=== PATIENT | male | born 1975 | race Caucasian/White ===

== ENCOUNTER 2020-07-13 16:15 | Outpatient (REF) | payer MEDICARE, MEDICAID, OTHER, SELFPAY ==
--- NOTE | 2020-07-13 16:25 | XR_ITS ---
EXAMINATION: XR KNEE, BILATERAL CLINICAL INFORMATION: Bilateral knee pain. COMPARISON: None TECHNIQUE: Four views each knee. FINDINGS: LEFT KNEE: There is loss of medial and patellofemoral compartment joint space with no bony erosive changes, loose bodies or joint effusion. RIGHT KNEE: There is mild loss of medial and patellofemoral compartment joint space without periarticular spurring, bony erosive changes or loose bodies. No joint effusion seen. XR/XR knee LT 3V IMPRESSION: Mild loss of medial and patellofemoral compartment joint space likely early osteoarthritis. No visible acute fracture, dislocation or joint effusion. No loose body seen in either knee.
--- NOTE | 2020-07-13 16:25 | XR_ITS ---
EXAMINATION: XR KNEE, BILATERAL CLINICAL INFORMATION: Bilateral knee pain. COMPARISON: None TECHNIQUE: Four views each knee. FINDINGS: LEFT KNEE: There is loss of medial and patellofemoral compartment joint space with no bony erosive changes, loose bodies or joint effusion. RIGHT KNEE: There is mild loss of medial and patellofemoral compartment joint space without periarticular spurring, bony erosive changes or loose bodies. No joint effusion seen. XR/XR knee RT 3V IMPRESSION: Mild loss of medial and patellofemoral compartment joint space likely early osteoarthritis. No visible acute fracture, dislocation or joint effusion. No loose body seen in either knee.
== END 2020-07-13 16:16 | disposition home or self-care (01) ==
LOC: HO.XRAY 16:15
PROVIDERS: PCP Internal Medicine Geriatric Medicine; Visit Provider Nurse Practitioner Primary Care
DX: M25.561 Pain in right knee (principal); M25.562 Pain in left knee
CPT/HCPCS: 73562

== ENCOUNTER 2020-12-16 12:31 | Outpatient (REF) | payer MEDICARE, MEDICAID, SELFPAY ==
--- NOTE | ~2020-12-16 | XR_ITS ---
EXAMINATION: XR FOOT, LEFT CLINICAL INFORMATION: Pain left foot. COMPARISON: None TECHNIQUE: AP, lateral, and oblique views of the left foot. FINDINGS: The bones and soft tissues are normal. No fracture. Alignment is anatomic. Joint spaces are maintained. XR/XR foot LT min 3V IMPRESSION: Unremarkable left foot exam.
== END 2020-12-16 12:32 | disposition home or self-care (01) ==
LOC: HO.XRAY 12:31
PROVIDERS: PCP Internal Medicine Geriatric Medicine; Visit Provider Emergency Medicine
DX: M79.672 Pain in left foot (principal)
CPT/HCPCS: 73630

== ENCOUNTER 2021-10-15 15:11 | Outpatient (REF) | payer MEDICARE, MEDICAID, SELFPAY ==
--- NOTE | ~2021-10-15 | US_ITS ---
EXAMINATION: US VENOUS ULTRASOUND WITH DOPPLER LOWER EXTREMITY, LEFT CLINICAL INFORMATION: Atraumatic severe left knee pain, rule out popliteal cyst. COMPARISON: None TECHNIQUE: Ultrasound of the deep veins is performed from the hip to the calf with compression sonography and color and pulse Doppler assessment. Spectral analysis with color-flow imaging is performed. FINDINGS: There is normal venous compression and respiratory variation and augmented flow. The visualized common femoral vein, superficial femoral vein, profunda femoral vein, popliteal vein, and the trifurcation region shows no evidence of deep venous thrombosis. No left popliteal cyst. A small anechoic collection is seen anterolateral to the left knee demonstrate a horizontal orientation measuring 1.4 x 0.6 x 0.9 cm. Color Doppler showed no abnormal vascular flow. If the patient's symptoms persist, followup ultrasound in 5 days 7 days might be of value to exclude proximal propagation from a non-visualized calf vein. US/US venous duplex LE IMPRESSION: 1. No evidence for deep venous thrombosis in the visualized veins of the left lower extremity. 2. Small anechoic fluid collection along the anterolateral aspect of the left knee could represent mild joint fluid or resolving hematoma. Correlate with physical exam. * If these findings persist or enlarge, short-term repeat targeted soft tissue ultrasound can be performed as clinically indicated to assess for change.
== END 2021-10-15 15:12 | disposition home or self-care (01) ==
LOC: HO.US 15:11
PROVIDERS: PCP Internal Medicine Geriatric Medicine; Visit Provider Nurse Practitioner Family
DX: M25.562 Pain in left knee (principal)
CPT/HCPCS: 93971

== ENCOUNTER 2023-09-12 09:20 | Outpatient (REF) | payer MEDICARE, MEDICAID, SELFPAY ==
[2023-09-12 11:38] LABS: MANUAL DIFF FLAG NO
[2023-09-12 11:42] LABS: Basophils Percent Auto 0.5 % (0-2); Eosinophils Absolute Auto 0.1 X10*3/uL (0.0-0.4); Eosinophils Percent Auto 1.4 % (0-4); Hematocrit 43.4 % (42.0-52.0); Hemoglobin 14.5 g/dl (14.0-18.0); Imm Gran Abs Auto 0.01 X10*3/uL (0.00-0.03); Imm Gran Pct Auto 0.2 % (0.0-0.4); Lymphocytes Absolute Auto 1.9 X10*3/uL (1.2-4.9); Lymphocytes Percent Auto 44.1 % (20-40); Mean Corpuscular HGB Conc 33.4 g/dl (31.0-36.0); Mean Corpuscular Volume 92.7 fL (80.0-98.0); Mean Platelet Volume 10.1 fL (9.4-12.4); Monocytes Absolute Auto 0.5 X10*3/uL (0.1-1.2); Monocytes Percent Auto 12.2 % (2-11); Neutrophils Absolute Auto 1.8 x10*3/uL (2.0-8.3); Neutrophils Percent Auto 41.6 % (45-73); Platelet Count 247 X10*3/uL (160-400); Red Blood Count 4.68 X10*6/uL (4.60-5.80); Red Cell Distribution Width 12.3 % (11.0-16.0); White Blood Count 4.3 X10*3/uL (4.8-10.8)
[2023-09-12 12:29] LABS: Alanine Aminotransferase 25 U/L (0-40); Albumin Level 4.3 g/dL (3.5-5.0); Alkaline Phosphatase 73 U/L (39-117); Anion Gap 10 (12-20); Aspartate Amino Transferase 35 U/L (5-37); Bilirubin Total 0.7 mg/dL (0.0-1.0); Blood Urea Nitrogen 18 mg/dL (9-16); Calcium 9.2 mg/dL (8.4-10.2); Carbon Dioxide 28 mmol/L (22-29); Chloride 103 mmol/L (96-108); Cholesterol 148 mg/dL (<200); Estimated Glomerular Filt Rate > 60; Glucose Random 83 mg/dL (60-115); HDL Cholesterol 45 mg/dL (>40); LDL Cholesterol Calculated 65 mg/dL (<100); Potassium 4.2 mmol/L (3.3-5.1); Sodium 137 mmol/L (135-145); Total Protein 7.7 g/dL (6.5-8.0); Triglycerides 191 mg/dL (<150)
== END 2023-09-12 09:21 | disposition home or self-care (01) ==
LOC: HO.HHCL 09:20
PROVIDERS: Visit Provider Internal Medicine Geriatric Medicine
DX: I10 Essential (primary) hypertension (principal)
CPT/HCPCS: 36415; 80053; 80061; 85025

== ENCOUNTER 2024-02-15 13:37 | Outpatient (REF) | payer MEDICARE, MEDICAID, SELFPAY ==
[2024-02-15 16:19] LABS: MANUAL DIFF FLAG NO
[2024-02-15 16:21] LABS: Basophils Percent Auto 0.3 % (0-2); Eosinophils Percent Auto 0.6 % (0-4); Hemoglobin 14.1 g/dl (14.0-18.0); Imm Gran Abs Auto 0.03 X10*3/uL (0.00-0.03); Imm Gran Pct Auto 0.5 % (0.0-0.4); Lymphocytes Absolute Auto 2.2 X10*3/uL (1.2-4.9); Lymphocytes Percent Auto 32.8 % (20-40); Mean Corpuscular HGB Conc 33.6 g/dl (31.0-36.0); Mean Corpuscular Hemoglobin 31.2 pg (27.0-33.0); Mean Corpuscular Volume 92.9 fL (80.0-98.0); Mean Platelet Volume 10.1 fL (9.4-12.4); Monocytes Absolute Auto 0.7 X10*3/uL (0.1-1.2); Monocytes Percent Auto 10.7 % (2-11); Neutrophils Absolute Auto 3.6 x10*3/uL (2.0-8.3); Neutrophils Percent Auto 55.1 % (45-73); Platelet Count 275 X10*3/uL (160-400); Red Blood Count 4.52 X10*6/uL (4.60-5.80); Red Cell Distribution Width 12.6 % (11.0-16.0); White Blood Count 6.6 X10*3/uL (4.8-10.8)
[2024-02-15 16:40] LABS: Alanine Aminotransferase 39 U/L (0-40); Albumin Level 4.5 g/dL (3.5-5.0); Alkaline Phosphatase 69 U/L (39-117); Anion Gap 13 (12-20); Aspartate Amino Transferase 54 U/L (5-37); Bilirubin Total 0.6 mg/dL (0.0-1.0); Blood Urea Nitrogen 16 mg/dL (9-16); Calcium 10.1 mg/dL (8.4-10.2); Carbon Dioxide 28 mmol/L (22-29); Chloride 102 mmol/L (96-108); Estimated Glomerular Filt Rate > 60; Glucose Random 86 mg/dL (60-115); Potassium 4.2 mmol/L (3.3-5.1); Sodium 139 mmol/L (135-145); Total Protein 8.1 g/dL (6.5-8.0)
== END 2024-02-15 13:38 | disposition home or self-care (01) ==
LOC: HO.HHCL 13:37
PROVIDERS: Visit Provider Internal Medicine Geriatric Medicine
DX: R10.9 Unspecified abdominal pain (principal); G89.29 Other chronic pain; Z98.890 Other specified postprocedural states
CPT/HCPCS: 36415; 80053; 85025

== ENCOUNTER 2024-08-12 10:09 | Outpatient (REF) | payer MEDICARE, MEDICAID, SELFPAY ==
--- OUTSIDE RECORDS SUMMARY | 2024-08-12 10:51 | XMS_ITS | Clinical Summary ---
Author Organization [employer] Address [address] [facility] 7[address] [place] [address] Care Team Providers Care Race Starter Name Role Phone Name, Joni MATAMOROS Primary Care Provider [phone] Thelma Pate PharmD Unavailable [phone] Allergies Active Allergy Reactions Criticality Noted Date Comments Amlodipine 12/22/2021 Other reaction(s): Constipation Medications docusate sodium (Colace) 100 MG capsule Take 1 capsule by mouth every 12 (twelve) hours. 04/15/20 20 Active nadolol (Corgard) 20 MG tablet Take 1 tablet (20 mg) by mouth in the morning. 30 tablet 11 08/23/19 24 025 Active polyethylene glycol, PEG, 3350 (MiraLax) 17 GM/SCOOP powder Take 17 g by mouth Once per day. 527 g 2 02/29/20 24 025 Active valsartan (Diovan) 320 MG tabletIndicatio ns:Essential hypertension TAKE 1 TABLET BY MOUTH EVERY DAY IN THE MORNING 90 tablet 1 04/04/20 24 Active mometasone (Elocon) 0.1 % ointmentIndicat ions:Rash APPLY TOPICALLY EVERY MORNING 15 g 05/03/20 24 Active amitriptyline (Elavil) 50 MG tablet TAKE 1 TABLET BY MOUTH EVERY DAY IN THE MORNING AND 2 AT BEDTIME 270 tablet 1 06/11/20 24 Active SUMAtriptan (Imitrex) 6 MG/0.5ML injectionIndica tions:Migraine without aura, not refractory INJECT 0.5ML UNDER THE SKIN IF NEEDED FOR MIGRAINE,MAY REPEAT AFTER 1 HOUR IF NEEDED.MAX 2 DOSES/DAY 0.5 mL 07/30/19 25 Active traMADol (Ultram) 50 MG tabletIndicatio ns:Chronic pain syndrome Take 1 tablet (50 mg) by mouth every 8 (eight) hours if needed for severe pain for up to 28 days. Do not start before August 02, 2024. 84 tablet 08/02/19 25 025 Active naproxen (Naprosyn) 500 MG tabletIndicatio ns:Chronic pain syndrome TAKE 1 TABLET BY MOUTH EVERY DAY IF NEEDED FOR MILD PAIN 60 tablet 07/31/19 25 Active naproxen (Naprosyn) 500 MG tabletIndicatio ns:Chronic pain syndrome TAKE 1 TABLET BY MOUTH EVERY DAY IF NEEDED FOR MILD PAIN 60 tablet 05/03/20 24 025 Discontinued(Re order (will not trigger notification to Pharmacy)) SUMAtriptan (Imitrex) 6 MG/0.5ML injectionIndica tions:Migraine without aura, not refractory INJECT 0.5 ML (6MG) UNDER THE SKIN IF NEEDED FOR MIGRAINES (IF SYMPTOMS PERSIST REPEAT DOSE AFTER 1 HOUR. NO MORE THEN 12MG IN A DAY) FOR UP TO 10 DOSES. 5 mL 07/01/20 24 025 Discontinued traMADol (Ultram) 50 MG tabletIndicatio ns:Chronic pain syndrome Take 1 tablet (50 mg) by mouth every 8 (eight) hours if needed for severe pain for up to 28 days. 84 tablet 07/05/20 24 025 Discontinued(Re order (will not trigger notification to Pharmacy)) Active Problems Problem Noted Date Diagnosed Date History of appendectomy 05/22/2023 05/22/20 Hyperbilirubinemia 05/22/2023 05/22/2023 Overweight with body mass index (BMI) 25.0-29.9 05/22/2023 05/22/2023 Neuropathic pain 05/22/2023 05/22/2023 Overview (05/22/2023): One of two primary pain problems identified on presentation to [facility] 02/2009 Posttraumatic stress disorder 05/22/2023 Reactive depression 05/22/2023 05/22/2023 Traumatic rupture of spleen 05/22/202305/10 Overview (05/22/2023): Actually splenic laceration. No splenectomy performed. Obstructive sleep apnea syndrome 02/02/2017 Allergic rhinitis 09/30/2016 Essential hypertension 03/03/2016 Chronic diarrhea 01/18/2016 Migraine without aura, not refractory 01/18/2016 Rectal prolapse 01/18/2016 Chronic pain syndrome 06/21/2004 Overview (05/22/2023): One of two primary pain problems identified on presentation to [facility] 02/2009 low back, left buttock, abdomen Crush injury 06/21/2004 05/22/2023 Resolved Problems Problem Noted Date Diagnosed Date Resolved Date Dizziness 05/22/2023 05/22/2023 08/24/2023 Overview (05/22/2023): ? opioid treatment related Headache 05/22/2023 05/22/2023 08/24/2023 Hyposomnia 05/22/2023 05/22/2023 08/24/2023 Pain of left lower extremity 05/22/2023 05/22/2023 08/24/2023 Urinary hesitancy 05/22/2023 05/22/2023 08/24/2023 Overview (05/22/2023): opioid treatment related Migraine 03/28/2018 08/24/2023 Encounters Date Type Department Care Team Description 08/12/2024 9:45 AM EST Office Visit [facility] [address] [place] [address] NameJoni MD Essential hypertension (Primary Dx); Migraine without aura, not refractory; Chronic abdominal pain; Screening for human immunodeficiency virus; Need for hepatitis C screening test 07/30/2024 Refill [facility] [address] [place], [place] [phone] Joni Epstein MD Chronic pain syndrome 07/30/2024 Refill [facility] [address] [place], [place] [phone] Joni Epstien MD Chronic pain syndrome 07/29/2024 Refill [facility] [address] [place] [address] Joni Epstein MD Migraine without aura, not refractory 07/18/2024 Telephone [facility] [address] [place] [address] Joni Epstein MD callback 07/03/2024 Refill [facility] [address] [place] [address] Joni Epstein MD Chronic pain syndrome 07/01/2024 Telephone [facility] [address] [facility] [place] [address] Joni Epstein MD Appointment Request 07/01/2024 Refill [facility] [address] [place] [address] Joni Epstein MD Migraine without aura, not refractory 06/26/2024 Refill [facility] [address] [facility] [place] [address] Joni Epstein MD Chronic pain syndrome 06/24/2024 Telephone [facility] [address] [facility] [place] [address] April Gill MA feb recall 06/10/2024 Refill [facility] [address] [place] [address] Joni Epstein MD 05/30/2024 Refill [facility] [address] [facility] [place] [address] Joni Epstein MD Chronic pain syndrome from Last 3 Months Immunizations Name Administration Dates Next Due Influenza Whole 05/22/2008 Influenza injectable quadriv alent IIV4 with preservative 04/23/2019,03/25/2016 Influenza, IIV3, injectable 04/17/2015, 3 Darlene SARS-CoV-2 Vaccination 12/15/2020 Tdap 12/13/2022,07/01/2016,12/12/2011 Social History Tobacco Use Types Packs/Day Years Used Date Smoking Tobacco: Never Smokeless Tobacco: Never Tobacco Cessation:Counseling Given: Not Answered Alcohol Use Standard Drinks/Week Comments Never 0 (1 standard drink = 0.6 oz pur e alcohol) Depression Answer Date Recorded Patient Health Questionnaire-9 Score 0 08/23/2023 Patient Health Questionnaire-9 Score 0 08/23/2023 Last PHQ-9: Questionnaire Data Not on file 0 08/23/2023 Housing Stability Answer Date Recorded What is your housing situation today? I have tc mckeon 08/23/[address] you li ve. Do you have problems with any of the following? None of the above 08/23/2023 Food Insecurity Answer Date Recorded Within the past 12 months, y ou worried that your food would run out before you got money to buy more: Never True 08/23/2023 Within the past 12 months,th e food you bought just didn't last and you didn't have enough money to get more: Never True Transportation Answer Date Recorded In the past 12 months, has l ack of transportation kept you from medical appts, meetings, work or from getting things needed for daily living? No 08/23/2023 Utilities Answer Date Recorded In the past 12 months, has t he electric, gas, oil or water company threatened to shut off services in your home? No 08/23/2023 Depression Answer Date Recorded Patient Health Questionnaire-2 Score 0 08/23/2023 Sex and Gender Information Value Date Recorded Sex Assigned at Male 05/09/2022 10:29 AM EDT Legal Sex Male 10:29 AM EDT Gender Identity Male 05/09/2022 10:29 AM EDT Sexual Orientation Straight 05/09/2022 10 :29 AM EDT Last Filed Vital Signs Vital Sign Reading Time Taken Comments Blood Pressure 124/74 08/12/2024 9:36 AM EST Pulse 98 08/12/2024 9:36 AM EST Temperature 36.4 ??C (97.5 ??F) 08/12/2024 9:36 AM ES T Respiratory Rate 16 08/12/2024 9:36 AM EST Oxygen Saturation 99% 08/12/2024 9:36 AM EST Inhaled Oxygen Concentration - - Weight 95.3 kg (210 lb 3.2 oz) 08/12/2024 9:36 A M EST Height 172.7 cm (5' 8 ) 08/12/2024 9:36 AM EST Body Mass Index 31.96 08/12/2024 9:36 AM EST Plan of Treatment Upcoming Encounters Date Type Department Care Team (Late st Contact Info) Description 08/19/2024 1:00 PM EST Clinical Support [facility] [address] [place] [address] Charlee Rogers, RN Health Maintenance Due Date Last Done Comments CT Colonography 1973 FIT DNA/Cologuard 1973 FIT 1973 FOBT 1973 HIV Screening 1973 Sigmoidoscopy 1973 HIB Vaccines (1 of 1 - Risk 1-dose series) 05/15/1974 Meningococcal Vaccine (1 - Risk 2-dose series) 1975 Meningococcal B Vaccine (1 of 4 - Increased Risk) 1983 Family Planning (PISQ) 02/13/1988 Hepatitis C Screening 1991 Hepatitis B Vaccines (1 of 3 - 19+ 3-dose series) 02/13/1992 Pneumococcal Vaccine: 50+ Years (1 of 2 - PCV) 02/13/1992 Zoster Vaccines (1 of 2) 2023 COVID-19 Vaccine (2 - season) 2024 12/15/2020 Influenza Vaccine (#1) 2024 9, 03/25/2016, 04/17/2015, Additional history exists Depression Screening 08/23/2024 08/23/2023, 08/23/19 24 SDOH Screening 08/23/2024 08/23/2023 Alcohol/Substance Use Screening 08/12/2025 08/12/2024 Tobacco Screening 08/12/2025 08/12/2024 Lipid Panel 09/11/2028 09/12/2023, 01/05/2022 Colonoscopy 12/21/2028 12/22/2023 Colorectal Cancer Screening 12/21/2028 DTaP/Tdap/Td Vaccines (4 - Td or Tdap) 12/13/2032 12/13/2022, 07/01/2016, 12/12/2011 RSV Patients and Patients Aged 60 years or older (1 - 1-dose 75+ series) 02/13/2048 HPV Vaccines Aged Out No longer eligi ble based on patient's age to complete this topic Hepatitis A Vaccines Aged Out No long er eligible based on patient's age to complete this topic IPV Vaccines Aged Out No longer eligi ble based on patient's age to complete this topic RSV under 20 months Aged Out No longe r eligible based on patient's age to complete this topic Rotavirus Vaccines Aged Out No longer eligible based on patient's age to complete this topic Goals Goal Patient Goal Type Associated Problems Recent Progress Patient-Stated? Author Blood Pressure < 140/90 Blood Pressure 124/74( 025 9:36 AM EST) No Thelma Pate PharmD Record your blood pressure once per day Blood Pressure No Thelma Pate PharmD Procedures Procedure Name Priority Date/Time Associated Diagnosis Comments COLONOSCOPY Routine 12/22/2023 LIPID PANEL, STANDARD Routine 09/12/2023 9:22 AM EST Essential hypertension from Last 3 Months or Most Recently Relevant to Health Maintenance Results * (ABNORMAL) Colonoscopy (12/22/2023) Colonoscopy Abnormal(A ) Normal Joni Epstein MD HEALTH MAINTENANCE Final Result * (ABNORMAL) Lipid Panel, Standard (09/12/2023 9:22 AM EST) Triglycerides 191(H) <150 mg/dL [facility] Comment:Desirable Triglyceri de: less than 150 mg/dLBorderline High Triglyceride 150-199 mg/dLHigh Triglyceride: 200-499 mg/dLVery High Triglyceride: greater than or equal to 5OO mg/dL Cholesterol 148 <200 mg/dL [facility] Comment:Desirable Cholestero l: less than 200 mg/dLBorderline High Cholesterol: 200-239 mg/dLHigh Cholesterol: greater than 239 mg/dL LDL Cholesterol Calculated 65 <100 mg/dL [facility] Comment:Desirable LDL: less than 100 mg/dLNear Optimal/Above Optimal LDL: 110- 129 mg/dLBorderline High LDL: 130-159 mg/dLHigh LDL: 160-189 mg/dLVery High LDL: greater than or equal to 190 mg/dL HDL Cholesterol 45 >40 mg/dL [facility] Comment:Desirable HDL: great er than 40 mg/dL Note: This HDL assay may give artificially low results in patients with liver disease. Blood Venous blood specimen / Unknown 09/12/2023 9:22 AM EST 09/12/2023 11:33 AM EST us Joni Epstein MD LAB BLOOD ORDERABLES Final Resul t [facility] [address] [place] [address] [phone] from Last 3 Months or Most Recently Relevant to Health Maintenance Insurance [address] [place] [id number] MEDICARE [facility] [address] [place] [phone] [address] [place] [address] Care Teams Race Starter Relationship Specialty Start Date End Date Name, MD Joni [address] [place] [address] PCP - General Family Medicine 07/10/18 Thelma Pate, AsifD [address] [place] [address] Pharmacist Internal Medicine 09/07/22
--- OUTSIDE RECORDS SUMMARY | 2024-08-12 10:51 | XMS_ITS | Encounter Summary ---
Author Organization [employer] Address [address] [facility] 7t [place] [address] Care Team Providers Care Panel Gluer Name Role Phone Name, Joni MATAMOROS Primary Care Provider [phone] Thelma Pate PharmD Unavailable [phone] Reason for Visit * Reason Onset Date Comments Med Refill 09/17/2023 Encounter Details Date Type Department Care Team (Late st Contact Info) Description 09/17/2023 Refill [facility] [address] [place], [place] [phone] Name, MD Joni [address] [place] [address] Social History Tobacco Use Types Packs/Day Years Used Date Smoking Tobacco: Never Smokeless Tobacco: Never Alcohol Use Standard Drinks/Week Comments Never 0 [...] Orientation Straight 05/09/2022 10 :29 AM EDT documented as of this encounter Plan of Treatment Upcoming Encounters Date Type Department Care Team (Late st Contact Info) Description 08/19/2024 1:00 PM EST Clinical Support [facility] [address] [place] [address] Charlee Rogers RN documented as of this encounter Goals Goal Patient Goal Type Associated Problems Recent Progress Patient-Stated? Author Blood Pressure < 140/90 Blood Pressure 124/74( 025 9:36 AM EST) No Thelma Pate, PharmD Record your blood pressure once per day Blood Pressure No Thelma Pate, PharmD documented as of this encounter Visit Diagnoses Not on filedocumented in this encounter Additional Health Concerns Assessment Noted Time PHQ-9 Depression Total Score: 0 08/23/19 24 2:51 PM EST documented as of this encounter Care Teams Panel Gluer Relationship Specialty Start Date End Date Name, MD Joni [address] [place] [id number] PCP - General Family Medicine 07/10/18 Thelma Pate, PharmD [address] [place] [phone] Pharmacist Internal Medicine 09/07/22 documented as of this encounter
--- OUTSIDE RECORDS SUMMARY | 2024-08-12 10:51 | XMS_ITS | Encounter Summary ---
Author Organization [employer] Address [address] [facility] 7t [place] [address] Care Team Providers Care Rn Mental Health Name Role Phone Name, Joni MATAMOROS Primary Care Provider [phone] Thelma Pate PharmD Unavailable [phone] Reason for Visit * Reason Onset Date Comments Med Refill 06/08/2023 Encounter Details Date Type Department Care Team (Late st Contact Info) Description 06/08/2023 Refill [facility] [address] [place], [place] [phone] Name, MD Joni [address] [place] [address] Essential hypertension Social History Tobacco Use Types Packs/Day Years Used Date Smoking Tobacco: Never Smokeless Tobacco: Never Alcohol Use Standard Drinks/Week Comments Never 0 (1 standard drink = 0.6 oz pur e alcohol) Housing Stability Answer Date Recorded What is your housing situation today? I have tc mckeon 04/29/[address] you li ve. Do you have problems with any of the following? None of the above 04/29/2023 Food Insecurity Answer Date Recorded Within the past 12 months, y ou worried that your food would run out before you got money to buy more: Never True 04/29/2023 Within the past 12 months,th e food you bought just didn't last and you didn't have enough money to get more: Never True Transportation Answer Date Recorded In the past 12 months, has l ack of transportation kept you from medical appts, meetings, work or from getting things needed for daily living? No 04/29/2023 Utilities Answer Date Recorded In the past 12 months, has t he electric, gas, oil or water company threatened to shut off services in your home? No 04/29/2023 Depression Answer Date Recorded Patient Health Questionnaire-2 Score 0 06/13/2022 Sex and Gender Information Value Date Recorded Sex Assigned at Male 05/09/2022 10:29 AM EDT Legal Sex Male 10:29 AM EDT Gender Identity Male 05/09/2022 10:29 AM EDT Sexual Orientation Straight 05/09/2022 10 :29 AM EDT documented as of this encounter Plan of Treatment Upcoming Encounters Date Type Department Care Team (Late st Contact Info) Description 08/19/2024 1:00 PM EST Clinical Support [facility] [address] [place] [phone] Charlee Rogers RN documented as of this encounter Goals Goal Patient Goal Type Associated Problems Recent Progress Patient-Stated? Author Blood Pressure < 140/90 Blood Pressure 124/74( 025 9:36 AM EST) No Puia, Thelma, PharmD Record your blood pressure once per day Blood Pressure No Puia, Thelma, PharmD documented as of this encounter Visit Diagnoses Diagnosis Essential hypertension Unspecified essential hypertension documented in this encounter Care Teams Rn Mental Health Relationship Specialty Start Date End Date Name, MD Joni [address] [place] [phone] PCP - General Family Medicine 07/10/18 Antonia, Thelma, PharmD [address] [place] [phone] Pharmacist Internal Medicine 09/07/22 documented as of this encounter
--- OUTSIDE RECORDS SUMMARY | 2024-08-12 10:51 | XMS_ITS | Encounter Summary ---
Author Organization [employer] Address [address] [facility] 7t [place] [address] Care Team Providers Care Emergency Planning And Response Manager Name Role Phone Name, Joni MATAMOROS Primary Care Provider [phone] Thelma Pate PharmD Unavailable [phone] Reason for Visit * Reason Onset Date Comments Med Refill 08/18/2023 Encounter Details Date Type Department Care Team (Late st Contact Info) Description 08/18/2023 Refill [facility] [address] [place], [place] [phone] Name, MD Joni [address] [place] [address] Essential hypertension Social History Tobacco Use Types Packs/Day Years Used Date Smoking Tobacco: Never Smokeless Tobacco: Never Alcohol Use Standard Drinks/Week Comments Never 0 (1 standard drink = 0.6 oz pur e alcohol) Housing Stability Answer Date Recorded What is your housing situation today? I have ct mckeon 04/29/[address] you [...] Description 08/19/2024 1:00 PM EST Clinical Support [facility] [address] [place] [phone] Charlee Rogers RN documented as of this [...] hypertension documented in this encounter Care Teams Emergency Planning And Response Manager Relationship Specialty Start Date End Date Name, MD Joni [address] [place] [id number] PCP - General Family Medicine 07/10/18 Antonia, Thelma, PharmD [address] [place] [address] Pharmacist Internal Medicine 09/07/22 documented as of this encounter
--- OUTSIDE RECORDS SUMMARY | 2024-08-12 10:51 | XMS_ITS | Encounter Summary ---
Author Organization [employer] Address [address] [facility] 7t [place] [address] Care Team Providers Care Spudder Name Role Phone Name, Joni MATAMOROS Primary Care Provider [phone] Thelma Ptae PharmD Unavailable [phone] Reason for Visit * Reason Onset Date Comments Med Refill 07/27/2023 Encounter Details Date Type Department Care Team (Late st Contact Info) Description 07/27/2023 Refill [facility] [address] [place], [place] [phone] Name, MD Joni [address] [place], [place] [phone] Social History Tobacco Use Types Packs/Day Years [...] Description 08/19/2024 1:00 PM EST Clinical Support [facility] [address] [place] [phone] Charlee Rogers, VIVIANE documented as of this encounter Goals Goal Patient Goal Type Associated Problems Recent Progress Patient-Stated? Author Blood Pressure < 140/90 Blood Pressure 124/74( 025 9:36 AM EST) No Puia, Thelma, PharmD Record your blood pressure once per day Blood Pressure No Puia, Thelma, PharmD documented as of this encounter Visit Diagnoses Not on filedocumented in this encounter Care Teams Spudder Relationship Specialty Start Date End Date Name, MD Joni [address] [place] [address] PCP - General Family Medicine 07/10/18 Puia, Thelma, PharmD [address] [place] [phone] Pharmacist Internal Medicine 09/07/22 documented as of this encounter
--- OUTSIDE RECORDS SUMMARY | 2024-08-12 10:51 | XMS_ITS | Encounter Summary ---
Author Organization [employer] Address 75 [facility] 7t [place] [address] Care Team Providers Care Guest Service Manager Name Role Phone Name, Joni MATAMOROS Primary Care Provider [phone] Thelma Pate PharmD Unavailable [phone] Reason for Visit * Reason Onset Date Comments Med Refill 08/18/2023 Encounter Details Date Type Department Care Team (Late st Contact Info) Description 08/18/2023 Refill [facility] [address] [place], [place] [phone] Name, MD Joni [address] [place] [address] Social History Tobacco Use Types Packs/Day Years [...] Description 08/19/2024 1:00 PM EST Clinical Support [facility] [address] [place] [address] Charlee Rogers, VIVIANE documented as of this encounter Goals Goal Patient Goal Type Associated Problems Recent Progress Patient-Stated? Author Blood Pressure < 140/90 Blood Pressure 124/74( 025 9:36 AM EST) No Puia, Thelma, PharmD Record your blood pressure once per day Blood Pressure No Puia, Thelma, PharmD documented as of this encounter Visit Diagnoses Not on filedocumented in this encounter Care Teams Guest Service Manager Relationship Specialty Start Date End Date Name, MD Joni [address] [place] [address] PCP - General Family Medicine 07/10/18 Puia, Thelma, PharmD [address] [place] [address] Pharmacist Internal Medicine 09/07/22 documented as of this encounter
--- OUTSIDE RECORDS SUMMARY | 2024-08-12 10:51 | XMS_ITS | Encounter Summary ---
Author Organization [employer] Address 75 [facility] 7t [place] [address] Care Team Providers Care Manufacturing Engineering Director Name Role Phone Name, Joni MATAMOROS Primary Care Provider [phone] Thelma Pate PharmD Unavailable [phone] Reason for Visit * Reason Onset Date Comments Med Refill 03/07/2024 Encounter Details Date Type Department Care Team (Late st Contact Info) Description 03/07/2024 Refill [facility] [address] [place], [place] [phone] Name, MD Joni [address] [place] [address] Social History Tobacco Use Types Packs/Day Years [...] Description 08/19/2024 1:00 PM EST Clinical Support [facility] [address] [place] [address] Charlee Rogers RN documented as of this [...] documented as of this encounter Care Teams Manufacturing Engineering Director Relationship Specialty Start Date End Date Name, MD Joni [address] [place] [address] PCP - General Family Medicine 07/10/18 Thelma Pate, PharmD [address] [place] [address] Pharmacist Internal Medicine 09/07/22 documented as of this encounter
--- OUTSIDE RECORDS SUMMARY | 2024-08-12 10:51 | XMS_ITS | Encounter Summary ---
Author Organization [employer] Address 75 [facility] 7t [place] [address] Care Team Providers Care Support Dba Name Role Phone Name, Joni MATAMOROS Primary Care Provider Thelma Pate PharmD Unavailable [phone] Reason for Visit * Reason Onset Date Comments Med Refill 06/29/2023 Encounter Details Date Type Department Care Team (Late st Contact Info) Description 06/29/2023 Refill [facility] [address] [place], [place] [phone] Name, MD Joni 230 [place] [address] Social History Tobacco Use Types Packs/Day Years [...] Description 08/19/2024 1:00 PM EST Clinical Support [facility] [address] [place] [address] Charlee Rogers, VIVIANE documented as of this encounter Goals Goal Patient Goal Type Associated Problems Recent Progress Patient-Stated? Author Blood Pressure < 140/90 Blood Pressure 124/74( 025 9:36 AM EST) No Puia, Thelma, PharmD Record your blood pressure once per day Blood Pressure No Puia, Thelma, PharmD documented as of this encounter Visit Diagnoses Not on filedocumented in this encounter Care Teams Support Dba Relationship Specialty Start Date End Date Name, MD Joni 230 [place] [address] PCP - General Family Medicine 07/10/18 Puia, Thelma, PharmD [address] [place] [address] Pharmacist Internal Medicine 09/07/22 documented as of this encounter
--- OUTSIDE RECORDS SUMMARY | 2024-08-12 10:51 | XMS_ITS | Encounter Summary ---
Author Organization [employer] Address 75 [facility] 7t [place] [address] Care Team Providers Care Guest Request Runner Name Role Phone Joni Epstein MD Primary Care Provider [phone] Thelma Pate PharmD Unavailable [phone] Reason for Visit * Reason Comments Med Refill Encounter Details Date Type Department Care Team (Late st Contact Info) Description 07/18/2022 Refill [facility] [address] [place] [phone] Joni Epstein MD [address] [place] [address] Generalized abdominal pain Social History Tobacco Use Types Packs/Day Years Used Date Smoking Tobacco: Never Assessed Depression Answer Date Recorded Patient Health Questionnaire-2 [...] Description 08/19/2024 1:00 PM EST Clinical Support [facility] [address] [place] [phone] Charlee Rogers RN documented as of this encounter Visit Diagnoses Diagnosis Generalized abdominal pain Abdominal pain, generalized documented in this encounter Care Teams Guest Request Runner Relationship Specialty Start Date End Date Joni Epstein MD [address] [place] [address] PCP - General Family Medicine 07/10/18 Thelma Pate, Jonathon [address] [place] [address] Pharmacist Internal Medicine 09/07/22 documented as of this encounter
--- OUTSIDE RECORDS SUMMARY | 2024-08-12 10:52 | XMS_ITS | Encounter Summary ---
Author Organization [employer] Address 75 [facility] 7t [place] [address] Care Team Providers Care Childcare Center Director Name Role Phone Name, Joni MATAMOROS Primary Care Provider [phone] Thelma Pate PharmD Unavailable [phone] Reason for Visit * Reason Comments Med Refill Encounter Details Date Type Department Care Team ([facility] st Contact Info) Description 01/12/2024 Refill [facility] [address] [place], [place] [phone] Indira Aj FNP [address] [place] [address] Chronic pain syndrome Social History Tobacco Use Types Packs/Day Years [...] Description 08/19/2024 1:00 PM EST Clinical Support [facility] [address] [place] [address] Charlee Rogers RN documented as of this encounter Goals Goal Patient Goal Type Associated Problems Recent Progress Patient-Stated? Author Blood Pressure < 140/90 Blood Pressure 124/74( 025 9:36 AM EST) No Thelma Pate, PharmD Record your blood pressure once per day Blood Pressure No Thelma Pate, PharmD documented as of this encounter Visit Diagnoses Diagnosis Chronic pain syndrome documented in this encounter Additional Health Concerns Assessment Noted Time PHQ-9 Depression Total Score: 0 08/23/19 24 2:51 PM EST documented as of this encounter Care Teams Childcare Center Director Relationship Specialty Start Date End Date Name, MD Joni [address] [place] [address] PCP - General Family Medicine 07/10/18 Thelma Pate, PharmD [address] [place] [address] Pharmacist Internal Medicine 09/07/22 documented as of this encounter
--- OUTSIDE RECORDS SUMMARY | 2024-08-12 10:52 | XMS_ITS | Encounter Summary ---
Author Organization [employer] Address 75 [facility] 7t [place] [address] Care Team Providers Care Collision Estimator Name Role Phone Name, Joni MATAMOROS Primary Care Provider [phone] Thelma Pate PharmD Unavailable [phone] Reason for Visit * Reason Comments Med Refill Encounter Details Date Type Department Care Team ([facility] st Contact Info) Description 01/10/2024 Refill [facility] 230 [place], [place] [phone] Name, MD Joni [address] [place] [address] Rash Social History Tobacco Use Types Packs/Day Years [...] Description 08/19/2024 1:00 PM EST Clinical Support [facility] [address] [place] [address] Charlee Rogers RN documented as of this encounter Goals Goal Patient Goal Type Associated Problems Recent Progress Patient-Stated? Author Blood Pressure < 140/90 Blood Pressure 124/74( 025 9:36 AM EST) No Thelma Pate, PharmD Record your blood pressure once per day Blood Pressure No Thelma Pate, PharmD documented as of this encounter Visit Diagnoses Diagnosis Rash Rash and other nonspecific skin eruption documented in this encounter Additional Health Concerns Assessment Noted Time PHQ-9 Depression Total Score: 0 08/23/19 24 2:51 PM EST documented as of this encounter Care Teams Collision Estimator Relationship Specialty Start Date End Date Name, MD Joni [address] [place] [address] PCP - General Family Medicine 07/10/18 Thelma Pate, PharmD [address] [place] [address] Pharmacist Internal Medicine 09/07/22 documented as of this encounter
--- OUTSIDE RECORDS SUMMARY | 2024-08-12 10:52 | XMS_ITS | Encounter Summary ---
Author Organization [facility] Address [address] [place] [address] Care Team Providers Care Extension Service Specialist Name Role Phone Unavailable Primary Care Provider Unavailabl e Reason for Visit * Reason Comments Endodontic Treatment consultation Dental Pain I have pain in my gu m, on this tooth that has a rootcanal treatment (#8) Periodontal Encounter Details Date Type Department Care Team (Late st Contact Info) Description 08/01/2024 3:00 PM EST Office Visit [facility] [address] [place] [phone] Radha Vazquez, DMD [address] [place] [address] Periodontal abscess (Primary Dx) Social History Tobacco Use Types Packs/Day Years Used Date Smoking Tobacco: Never Smokeless Tobacco: Never Social Connections Answer Date Recorded Connectedness 0 05/06/2024 Financial Resource Strain Answer Date R ecorded Financial Resource Strain 0 2023 Stress Answer Date Recorded Stress 0 05/06/2024 Physical Activity Answer Date Recorded Physical Activity 0 05/06/2024 Food Insecurity Answer Date Recorded Food 0 05/06/2024 Transportation Needs Answer Date Record ed Transportation 0 05/06/2024 Housing Stability Answer Date Recorded Housing 0 05/06/2024 Safety and Environment Answer Date Will rded Safety 0 05/06/2024 Utilities Answer Date Recorded Utilities 0 05/06/2024 Employment Answer Date Recorded Stress 0 05/06/2024 Sex and Gender Information Value Date Recorded Sex Assigned at Not on file Legal Sex Male 11:36 AM PDT Gender Identity Not on file Sexual Orientation Not on file COVID-19 Exposure Response Date Recorded In the last 10 days, have yo u been in contact with someone who was confirmed or suspected to have Coronavirus/COVID-19? No / Unsure 07/25/2024 3:33 PM EST documented as of this encounter Progress Notes * Radha Wong DMD - 08/02/2024 9:39 AM EST Limited Exam Subjective Elvin Esteves, 49 year old male, presents alone for limited exam of Upper Anterior. Wire Frame Maker: No Chief Complaint Patient presents with Endodontic Treatment consultation Dental Pain I have pain in my gum, on this tooth that has a rootcanal treatment (#8) Periodontal Description of pain: constant Objective RMHx: Yes Vitals: There were no vitals filed for this visit. Endo Status: Previously treated #8 Endo Testing: Completed today: Tooth # Palpation Percussion Endo Ice Mobility Probing 8 + - - Type 2 3,3, 10 Assessment Dx: K05.219 Periodontal abscess (primary encounter diagnosis) Dx Details (Clinical Decision-Making): Tooth #8 is normal to percussion. Purulent drainage is notedfrom the cervical area on the mesial surface of tooth #8. A significant vertical bone defect is present on the mesial of tooth #8. The abscess has not improved following previous treatment with antibiotics and chlorhexidine rinse. Clinical signs and symptoms are consistent with a periodontal abscess. The patient has been referred to a meter supervisor for further evaluation and management. Plan Informed Consent/PARQ (Procedure, Alternatives, Risks, Questions): Discussed limited exam findings and treatment needs, questions answered. Patient confirms informed consent, verbalizes understandingof limited exam findings and treatment plan. Pt informed today's exam was a limited exam, and comprehensive exam was not done today. Treatment needs may exist in other areas which were not examined today. Advised patient seek comprehensive care and return for evaluation of other areas as soon as possible. Dental procedures in this visit D0140 - LIMITED ORAL EVALUATION - PROBLEM FOCUSED (Completed) Service provider: Radha Wong DMD Billing provider: Radha Wong DMD [id number] - INTRAORAL - PERIAPICAL FIRST RADIOGRAPHIC IMAGE (Completed) Service provider: Radha Wong DMD Billing provider: Radha Wong DMD Treatment Completed: Limited exam, referral to a meter supervisor Referral: No orders of the following type(s) were placed in this encounter: Referral. Rx: No orders of the defined types were placed in this encounter. Behavior: Excellent DA: Yarelis [place]: Hygiene - Perio Maint documented in this encounter Plan of Treatment Upcoming Encounters Date Type Department Care Team (Late st Contact Info) Description 08/30/2024 4:20 PM EST Office Visit [address] [phone] OdomBrettDebbie Y [address] [place] [address] 09/03/2024 4:20 PM EST Office Visit [address] [phone] Geetha Odomica Y [address] [place] [address] 09/11/2024 2:20 PM EST Office Visit [address] [phone] Mindi Raymundo, S [address] [place] [address] 10/02/2024 3:00 PM EDT Office Visit [address] [phone] Kenyatta Morales, S [address] [place] [address] 11/15/2024 3:00 PM EDT Office Visit [address] [phone] Debbie Odom Y [address] [place] [address] documented as of this encounter Procedures Procedure Name Priority Date/Time Associated Diagnosis Comments INTRAORAL - PERIAPICAL FIRST RADIOGRAPHIC IMAGE Routine 08/01/2024 3:00 PM EST Periodontal abscess LIMITED ORAL EVALUATION - PROBLEM FOCUSED Routine 08/01/2024 3:00 PM EST Periodontal abscess documented in this encounter Visit Diagnoses Diagnosis Periodontal abscess- Primary Aggressive periodontitis, localized documented in this encounter
--- OUTSIDE RECORDS SUMMARY | 2024-08-12 10:52 | XMS_ITS | Encounter Summary ---
Author Organization [employer] Address 75 [facility] 7t [place] [address] Care Team Providers Care Employee Communications Coordinator Name Role Phone Name, Joni MATAMOROS Primary Care Provider [phone] Thelma Pate PharmD Unavailable [phone] Reason for Visit * Reason Onset Date Comments Med Refill 01/12/2024 Encounter Details Date Type Department Care Team (Late st Contact Info) Description 01/12/2024 Telephone [facility] [address] [place], [place] [phone] Name, MD Joni [address] [place], [place] [phone] Med Refill Social History Tobacco Use Types Packs/Day Years [...] AM EDT documented as of this encounter Miscellaneous Notes * Telephone Encounter - Karen Finley RN - 01/12/2024 12:08 PM EDT Meds. Sent to PCP for approval and send to Pharmacy. * Telephone Encounter - Abena Banks - 01/12/2024 10:31 AM EDT TC from pt requesting medication refill. Medications needing refill : traMADol (Ultram) 50 MG tablet To be sent to: [facility]/pharmacy #[id number] documented in this encounter Plan of Treatment Upcoming Encounters Date Type Department Care Team (Late st Contact Info) Description 08/19/2024 1:00 PM EST Clinical Support [facility] [address] [place] [address] Charlee Rogers, VIVIANE documented as of this [...] documented as of this encounter Care Teams Employee Communications Coordinator Relationship Specialty Start Date End Date Name, MD Joni [address] [place] [address] PCP - General Family Medicine 07/10/18 Thelma Pate PharmD [address] [place] [address] Pharmacist Internal Medicine 09/07/22 documented as of this encounter
--- OUTSIDE RECORDS SUMMARY | 2024-08-12 10:52 | XMS_ITS | Encounter Summary ---
Author Organization [employer] Address 75 [facility] 7t [place] [address] Care Team Providers Care Caramel Cutter Machine Name Role Phone Name, Joni MATAMOROS Primary Care Provider [phone] Thelma Pate PharmD Unavailable [phone] Reason for Visit * Reason Onset Date Comments callback 07/18/2024 Encounter Details Date Type Department Care Team (Late st Contact Info) Description 07/18/2024 Telephone [facility] [address] [place], [place] [phone] Name, MD Joni [address] [place] [address] callback Social History Tobacco Use Types Packs/Day Years [...] encounter Miscellaneous Notes * Telephone Encounter - Kristina Gonsalves RN - 07/18/2024 3:17 PM EST TC placed to pt via [employer]S japanese interpreter ([employer] ID#[id number]) regarding the requested letter. Pt states he went to medical records for the letter and they stated they would write the letter. Pt states he needs the tramadol medication for pain and has been taking it for a long time with no issues from work but is currently an issue. Pt requesting an alternative medication so he is able to get license and return to work. Message forwarded to provider for review and advisement. * Telephone Encounter - Argelia Hand - 07/18/2024 3:01 PM EST Tc from pt requesting a callback he needs a letter clarifying that medication (Tramadol) is discontinued as he needs it to get a license [phone] documented in this encounter Plan of Treatment Upcoming Encounters Date Type Department Care Team (Late st Contact Info) Description 08/19/2024 1:00 PM EST Clinical Support [address] [address] Charlee Rogers, RN documented as of this encounter Goals Goal Patient Goal Type Associated Problems Recent Progress Patient-Stated? Author Blood Pressure < 140/90 Blood Pressure 124/74( 025 9:36 AM EST) No Thelma Pate PharmD Record your blood pressure once per day Blood Pressure No Thelma Pate PharmD documented as of this encounter Visit Diagnoses Not on filedocumented in this encounter Additional Health Concerns Assessment Noted Time PHQ-9 Depression Total Score: 0 08/23/19 24 2:51 PM EST documented as of this encounter Care Teams Caramel Cutter Machine Relationship Specialty Start Date End Date Name, MD Joni [address] [place] [address] PCP - General Family Medicine 07/10/18 Thelma Pate PharmD [address] [place] [address] Pharmacist Internal Medicine 09/07/22 documented as of this encounter
--- OUTSIDE RECORDS SUMMARY | 2024-08-12 10:52 | XMS_ITS | Encounter Summary ---
Author Organization [employer] Address [address] [facility] 7t [place] [address] Care Team Providers Care Manager Entry Name Role Phone Name, Joni MATAMOROS Primary Care Provider [phone] Thelma Pate PharmD Unavailable [phone] Reason for Visit * Reason Comments Follow-up Encounter Details Date Type Department Care Team (Latest Contact Info) Description 08/12/2024 9:45 AM EST Office Visit [facility] [address] [place], [place] [phone] Name, MD Joni [address] [place], [place] [phone] Essential hypertension (Primary Dx); Migraine without aura, not refractory; Chronic abdominal pain; Screening for human immunodeficiency virus; Need for hepatitis C screening test Social History Tobacco Use Types Packs/Day Years [...] AM EDT documented as of this encounter Last Filed Vital Signs Vital Sign Reading [...] Mass Index 31.96 08/12/2024 9:36 AM EST documented in this encounter Progress Notes * Joni Epstein MD - 08/12/2024 9:45 AM EST Subjective Patient ID: Elvin Esteves is a 49 y.o. male who presents for Follow-up. Patient comes for a follow-up visit. Blood pressure is well-controlled on his current medications. He continues to have occasional migraines. The patient is on amitriptyline for migraine prevention and Imitrex at the onset of the headaches. He continues to suffer with chronic abdominal pain. The patient has years of this problem after severe trauma to the abdomen requiring multiple surgeries at [facility]. CT scan of the abdomen have beenunremarkable. The patient has tried multiple medications for chronic pain. The patient is on EMERGENCY DEPARTMENT DIRECTOR agreement for treatment with tramadol for chronic pain. The patient does not have a history of illicitdrug use. Patient urine tox screens have been unremarkable. The patient follows regularly with EMERGENCY DEPARTMENT DIRECTOR nurse. 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 The patient is interested in using a different medication for the chronic abdominal pain. Tylenol and NSAIDs do not really help him. Gabapentin was not helpful in the past and may cause excessive drowsiness. Review of Systems Constitutional: Negative for chills, fatigue and fever. HENT: Negative for sore throat. Respiratory: Negative for cough, chest tightness and shortness of breath. Cardiovascular: Negative for chest pain, palpitations and leg swelling. Visit Vitals BP 124/74 (BP Location: Right arm, Patient Position: Sitting, BP Cuff Size: Large adult) Pulse 98 Temp 97.5 ??F (36.4 ??C) (Temporal) Resp 16 Ht 5' 8 (1.727 m) Wt 210 lb 3.2 oz (95.3 kg) SpO2 99% BMI 31.96 kg/m?? Smoking Status Never BSA 2.14 m?? Objective Physical Exam Constitutional: Appearance: Normal appearance. Cardiovascular: Rate and Rhythm: Normal rate and regular rhythm. Heart sounds: No murmur heard. Pulmonary: Effort: Pulmonary effort is normal. No respiratory distress. Breath sounds: No wheezing, rhonchi or rales. Abdominal: Palpations: Abdomen is soft. Tenderness: There is no abdominal tenderness. Musculoskeletal: Right lower leg: No edema. Left lower leg: No edema. Neurological: Mental Status: He is alert. Assessment/Plan Diagnoses and all orders for this visit: Essential hypertension Comments: Continue current medications and recheck BMP Orders: - Basic Metabolic Panel; Future Migraine without aura, not refractory Comments: Continue current medications Chronic abdominal pain Comments: Patient has daily pain. He is trying to come off the tramadol but has been difficult because of thepain. The patient has tried numerous other medications without success. I suggested a trial of as needed Bentyl for the abdominal pain and he will think about it. Screening for human immunodeficiency virus Comments: Patient agreed with HIV testing. Orders: - HIV-1/2 Antigen and Antibodies, Fourth Generation, with Reflexes; Future Need for hepatitis C screening test Comments: Patient agreed with hepatitis C testing. Orders: - Hepatitis C Antibody with Reflex to HCV, RNA, Quantitative, Real-Time PCR; Future documented in this encounter Plan of Treatment Upcoming Encounters Date Type Department Care Team (Late st Contact Info) Description 08/19/2024 1:00 PM EST Clinical Support [facility] [address] [place] [phone] Charlee Rogers RN Scheduled Orders Name Type Priority Associated Diagnoses Orde r Schedule Basic Metabolic Panel Lab Routine Essential hypertension Expected: 08/12/2024 (Approximate), Expires: 08/12/2025 HIV-1/2 Antigen and Antibodies, Fourth Generation, with Reflexes Lab Routine Screening for human immunodeficiency virus Expected: 08/12/2024 (Approximate), Expires: 08/12/2025 Hepatitis C Antibody with Reflex to HCV, RNA, Quantitative, Real-Time PCR Lab Routine Need for hepatitis C screening test Expected: 08/12/2024, Expires: 08/12/2025 documented as of this encounter Goals Goal Patient Goal Type Associated Problems Recent Progress Patient-Stated? Author Blood Pressure < 140/90 Blood Pressure 124/74( 025 9:36 AM EST) No Puia, Thelma, PharmD Record your blood pressure once per day Blood Pressure No Puia, Thelma, PharmD documented as of this encounter Visit Diagnoses Diagnosis Essential hypertension- Primary Unspecified essential hypertension Migraine without aura, not refractory Chronic abdominal pain Abdominal pain, unspecified site Screening for human immunodeficiency virus Special screening examination for other specified viral diseases Need for hepatitis C screening test Special screening examination for other specified viral diseases documented in this encounter Additional Health Concerns Assessment Noted Time PHQ-9 Depression Total Score: 0 08/23/19 24 2:51 PM EST documented as of this encounter Care Teams Manager Entry Relationship Specialty Start Date End Date Name, MD Joni [address] [place] [address] PCP - General Family Medicine 07/10/18 Puia, Thelma, PharmD [address] [place] [address] Pharmacist Internal Medicine 09/07/22 documented as of this encounter
--- OUTSIDE RECORDS SUMMARY | 2024-08-12 10:52 | XMS_ITS | Clinical Summary ---
Author Organization [facility] Address [address] [place] [address] Care Team Providers Care Reinforcing Steel Worker Name Role Phone Unavailable Primary Care Provider Unavailabl e Source Comments PLEASE NOTE, if this patient is a minor, it may be UNLAWFUL to discuss sensitive information that is contained in these records (such as FAMILY PLANNING, MENTAL HEALTH or SUBSTANCE ABUSE) with the minor patient's parent or other person without the patient's specific authorization.[facility] Medications amoxicillin (AMOXIL) 500 mg capsuleIndicati ons:Dental infection Take 1 Capsule by mouth 3 (three) times daily 21 Capsule 07/11/2024 Active Active Problems No known active problems Encounters Date Type Department Care Team Description 08/01/2024 3:00 PM EST Office Visit [address] [phone] Radha Vazquez DMD Periodontal abscess (Primary Dx) 07/25/2024 4:00 PM EST Office Visit [facility] [address] [place] [phone] Mindi Raymundo DDS Fracture of crown, enamel, and dentin of tooth without pulp exposure (Primary Dx) 07/25/2024 Travel 07/11/2024 2:20 PM EST Office Visit [facility] [address] [place] [phone] Mindi Raymundo DDS Fracture of crown, enamel, and dentin of tooth without pulp exposure (Primary Dx); Dental infection 07/11/2024 Travel 05/16/2024 2:00 PM EST Office Visit [facility] [facility] [address] [place] [phone] Odom, Debbie Y Encounter for dental examination (Primary Dx); Extruded tooth; Fracture of crown, enamel, and dentin of tooth without pulp exposure; Stage 4 grade B localized periodontitis per AAP/EFP 2017 classification; Stage 2 grade B generalized periodontitis per AAP/EFP 2017 classification; Bruxism; Encounter for dental examination and cleaning with abnormal findings 05/16/2024 Travel from Last 3 Months Social History Tobacco Use Types Packs/Day Years Used Date Smoking Tobacco: Never Smokeless Tobacco: Never Tobacco Cessation:Counseling Given: Not Answered Social Connections Answer Date Recorded Connectedness 0 [...] No / Unsure 07/25/2024 3:33 PM EST Last Filed Vital Signs Vital Sign Reading Time Taken Comments Blood Pressure 164/127 07/11/2024 2:26 PM EST Pulse 87 07/11/2024 2:26 PM EST Temperature - - Respiratory Rate - - Oxygen Saturation - - Inhaled Oxygen Concentration - - Weight - - Height - - Body Mass Index - - Plan of Treatment Upcoming Encounters Date Type Department Care Team (Late st Contact Info) Description 08/30/2024 4:20 PM EST Office Visit [facility] [address] [place] [phone] Debbie Odom Y [address] [place] [address] 09/03/2024 4:20 PM EST Office Visit [facility] [address] [place] [phone] Debbie Odom Y [address] [place] [address] 09/11/2024 2:20 PM EST Office Visit [facility] [address] [place] [phone] Mindi Raymundo, S [address] [place] [address] 10/02/2024 3:00 PM EDT Office Visit [address] [phone] [facility] [address] [place] [address] 11/15/2024 3:00 PM EDT Office Visit [place] [address] [place] [phone] Debbie Odom Y [address] [place] [address] Health Maintenance Due Date Last Done Comments Diabetes Screening 1973 Hepatitis C Screening 1973 HIV Screening 02/13/1988 Imm-Hepatitis B (1 of 3 - 19 + 3-dose series) 02/13/1992 CT Colonography 2018 Colonoscopy 2018 Colorectal Cancer Screening 2018 FIT/gFOBT 2018 Fecal DNA 2018 Flexible Sigmoidoscopy 2018 Imm-Zoster, Recombinant (1 of 2) 2023 Tgr-UKSGR-95 ( season) 2024 021 Imm-Influenza (#1) 2024 04/23/2019, 0 03/25/2016, 04/17/2015, Additional history exists Alcohol and Drug Screen 07/10/2024 Depression Annual Screen 07/10/2024 Tobacco Screening 05/16/2025 05/16/2024 Dental BW 05/18/2025 05/16/2024 Dental Examination 05/18/2025 05/16/2024 Dental Perio Charting 05/18/2025 05/16/2024 Dental Prophy 05/18/2025 05/16/2024 Hypertension Screening (#1) 07/11/2025 Lipid Screening 09/11/2028 09/12/2023 Dental FMX/Pano 05/18/2029 05/16/2024 Imm-DTaP/Tdap/Td (4 - Td or Tdap) 12/13/2032 12/13/2022, 07/01/2016, 12/12/2011 Procedures Procedure Name Priority Date/Time Associated Diagnosis Comments INTRAORAL - PERIAPICAL FIRST RADIOGRAPHIC IMAGE Routine 08/01/2024 3:00 PM EST Periodontal abscess LIMITED ORAL EVALUATION - PROBLEM FOCUSED Routine 08/01/2024 3:00 PM EST Periodontal abscess LIMITED ORAL EVALUATION - PROBLEM FOCUSED Routine 07/25/2024 4:00 PM EST Fracture of crown, enamel, and dentin of tooth without pulp exposure CASE PRESENTATION SUBS DTL & EXTENSIVE TX PLN Routine 07/25/2024 4:00 PM EST Fracture of crown, enamel, and dentin of tooth without pulp exposure 14 MOLL(V) CORE BUILDUP INCLUDING ANY PINS WHEN REQUIRED Routine 07/11/2024 2:20 PM EST Fracture of crown, enamel, and dentin of tooth without pulp exposure CASE PRESENTATION SUBS DTL & EXTENSIVE TX PLN Routine 07/11/2024 2:20 PM EST Fracture of crown, enamel, and dentin of tooth without pulp exposure CASE PRESENTATION SUBS DTL & EXTENSIVE TX PLN Routine 07/11/2024 2:20 PM EST Fracture of crown, enamel, and dentin of tooth without pulp exposure DENTAL CASE MANAGEMENT - MOTIVATIONAL INTV Routine 05/16/2024 2:00 PM EST Encounter for dental examination PROPHYLAXIS - ADULT Routine 05/16/2024 2 :00 PM EST Encounter for dental examination INTRAORAL - COMP SERIES OF RADIOGRAPHIC IMAGES Routine 05/16/2024 2:00 PM EST Extruded tooth Encounter for dental examination Fracture of crown, enamel, and dentin of tooth without pulp exposure COMP ORAL EVALUATION - NEW/ESTABLISHED PATIENT Routine 05/16/2024 2:00 PM EST Encounter for dental examination CARIES RISK ASSESSMENT & DOC FINDING HIGH RISK Routine 05/16/2024 2:00 PM EST Encounter for dental examination NUTRITIONAL COUNSELING CONTROL OF DENTAL DISEASE Routine 05/16/2024 2:00 PM EST Encounter for dental examination ORAL HYGIENE INSTRUCTIONS Routine 05/16/2024 2:00 PM EST Encounter for dental examination ORAL CANCER SCREENING Routine 05/16/2024 2:00 PM EST Encounter for dental examination CASE PRESENTATION SUBS DTL & EXTENSIVE TX PLN Routine 05/16/2024 2:00 PM EST Encounter for dental examination 15 O COMPOSITE - WISDOM (NON BILLABLE) Routine 05/16/2024 12:00 AM EST 14 O COMPOSITE - WISDOM (NON BILLABLE) Routine 05/16/2024 12:00 AM EST 20 O COMPOSITE - WISDOM (NON BILLABLE) Routine 05/16/2024 12:00 AM EST 30 O COMPOSITE - WISDOM (NON BILLABLE) Routine 05/16/2024 12:00 AM EST from Last 3 Months Insurance [place] DENTAL
--- OUTSIDE RECORDS SUMMARY | 2024-08-12 10:52 | XMS_ITS | Encounter Summary ---
Author Organization [facility] Address [address] [place] [address] Care Team Providers Care Traffic Sign Erection Supervisor Name Role Phone Unavailable Primary Care Provider Unavailabl e Encounter Details Date Type Department Care Team (Latest Contact Info) Description 07/25/2024 Travel Social History Tobacco Use Types Packs/Day Years [...] PM EST documented as of this encounter Plan of Treatment Upcoming Encounters Date Type Department Care Team (Late st Contact Info) Description 08/30/2024 4:20 PM EST Office Visit [facility] [address] [place] [phone] Geetha Odomica Y [address] [place] [address] 09/03/2024 4:20 PM EST Office Visit [facility] [facility] [phone] [place] [phone] Lei Debbie Y [facility] [place] [address] 09/11/2024 2:20 PM EST Office Visit [place] [facility] [address] [place] [phone] Mindi Raymundo, S [address] [place] [address] 10/02/2024 3:00 PM EDT Office Visit [address] [phone] Kenyatta Morales, S [address] [place] [address] 11/15/2024 3:00 PM EDT Office Visit [facility] [facility] [address] [place] [phone] Lei Debbie Y [address] [place] [address] documented as of this encounter Visit Diagnoses Not on filedocumented in this encounter
--- OUTSIDE RECORDS SUMMARY | 2024-08-12 10:52 | XMS_ITS | Encounter Summary ---
Author Organization [employer] Address [address] [facility] 7t [place] [address] Care Team Providers Care Chronic Disease Epidemiologist Name Role Phone Name, Joni MATAMOROS Primary Care Provider [phone] Thelma Pate PharmD Unavailable [phone] Reason for Visit * Reason Onset Date Comments Med Refill 07/30/2024 Encounter Details Date Type Department Care Team (Late st Contact Info) Description 07/30/2024 Refill [facility] [address] [place], [place] [phone] Name, MD Joni [address] [place], [place] [phone] Chronic pain syndrome Social History Tobacco Use [...] Description 08/19/2024 1:00 PM EST Clinical Support [facility] [address] [place] [address] Charlee Rogers RN documented as of this [...] documented as of this encounter Care Teams Chronic Disease Epidemiologist Relationship Specialty Start Date End Date Name, MD Joni [address] [place] [phone] PCP - General Family Medicine 07/10/18 Thelma Pate, PharmD [address] [place] [address] Pharmacist Internal Medicine 09/07/22 documented as of this encounter
--- OUTSIDE RECORDS SUMMARY | 2024-08-12 10:52 | XMS_ITS | Encounter Summary ---
Author Organization [employer] Address [address] [facility] 7t [place] [address] Care Team Providers Care General Assembler Installer Name Role Phone Name, Joni MATAMOROS Primary Care Provider [phone] Thelma Pate PharmD Unavailable [phone] Reason for Visit * Reason Onset Date Comments Med Refill 12/11/2023 Encounter Details Date Type Department Care Team (Late st Contact Info) Description 12/11/2023 Refill [facility] [address] [place], [place] [phone] Name, MD Joni [address] [place], [place] [phone] Social History Tobacco Use Types Packs/Day Years [...] Description 08/19/2024 1:00 PM EST Clinical Support [facility] [address] [place] [address] Charlee Rogers RN documented as of this [...] documented as of this encounter Care Teams General Assembler Installer Relationship Specialty Start Date End Date Name, MD Joni [address] [place] [address] PCP - General Family Medicine 07/10/18 Thelma Pate, PharmD [address] [place] [address] Pharmacist Internal Medicine 09/07/22 documented as of this encounter
--- OUTSIDE RECORDS SUMMARY | 2024-08-12 10:52 | XMS_ITS | Encounter Summary ---
Author Organization [facility] Address [address] [place] [address] Care Team Providers Care Paint Preparer Name Role Phone Unavailable Primary Care Provider Unavailabl e Encounter Details Date Type Department Care Team (Late st Contact Info) Description 07/25/2024 4:00 PM EST Office Visit [facility] [address] [place] [phone] Mindi Raymundo DDS [address] [place] [address] Fracture of crown, enamel, and dentin of tooth without pulp exposure (Primary Dx) Social History Tobacco Use Types [...] as of this encounter Progress Notes * Mindi Raymundo DDS - 07/25/2024 4:12 PM EST Limited Exam Subjective Elvin Esteves, 49 year old male, presents alone for limited exam of UR. Cooling Room Attendant: No No chief complaint on file. Description of pain: none Objective RMHx: Yes Vitals: There were no vitals filed for this visit. Endo Status: Endo Testing: Tooth # Palpation Percussion Endo Ice EPT Mobility Probing Assessment Dx: K08.539 Fracture of crown, enamel, and dentin of tooth without pulp exposure (primary encounterdiagnosis) Dx Details (Clinical Decision-Making): patient came for the limited exam, lutheran on tooth # 14done but cam out when lutheran was done a;ready inform, the patient that the filling will come out already told him its better to get a crown for the tooth. Patient agreed but before proceeding towards the crown or onlay tooth# 15 need to be extraction its over erupted so advice extraction and after the tooth# 15 extraction we will evaluate the distal surface of tooth# 14 for crown or onlay. Inform patient the prognosis of the tooth# 14 is not good, there is deep pocket on distally and bone loss present. Plan Informed Consent/PARQ (Procedure, Alternatives, Risks, Questions): [...] as possible. Dental procedures in this visit D9450 - CASE PRESENTATION SUBS DTL & EXTENSIVE TX PLN (Completed) Service provider: Mindi Raymundo DDS Billing provider: Mindi Raymundo DDS D0140 - LIMITED ORAL EVALUATION - PROBLEM FOCUSED (Completed) Service provider: Mindi Raymundo DDS Billing provider: Mindi Raymundo DDS Treatment Completed: Referral: No orders of the following type(s) were placed in this encounter: Referral. Rx: No orders of the defined types were placed in this encounter. Behavior: Compliant DA: pablo [place]: Treatment - Extraction documented in this encounter Plan of Treatment Upcoming Encounters Date Type Department Care Team (Late st Contact Info) Description 08/30/2024 4:20 PM EST Office Visit [address] [phone] Debbie Odom Y [address] [place] [address] 09/03/2024 4:20 PM EST Office Visit [address] [phone] Debbie Odom Y [address] [place] [address] 09/11/2024 2:20 PM EST Office Visit [address] [phone] Mindi Raymundo, HYACINTH [address] [place] [address] 10/02/2024 3:00 PM EDT Office Visit [address] [phone] Kenyatta Morales DDS [address] [place] [address] 11/15/2024 3:00 PM EDT Office Visit [address] [phone] Debbie Odom Y [address] [place] [address] documented as of this encounter Procedures Procedure Name Priority Date/Time Associated Diagnosis Comments CASE PRESENTATION SUBS DTL & EXTENSIVE TX PLN Routine 07/25/2024 4:00 PM EST Fracture of crown, enamel, and dentin of tooth without pulp exposure LIMITED ORAL EVALUATION - PROBLEM FOCUSED Routine 07/25/2024 4:00 PM EST Fracture of crown, enamel, and dentin of tooth without pulp exposure documented in this encounter Visit Diagnoses Diagnosis Fracture of crown, enamel, and dentin of tooth without pulp exposure- Primary documented in this encounter
--- OUTSIDE RECORDS SUMMARY | 2024-08-12 10:52 | XMS_ITS | Encounter Summary ---
Author Organization [employer] Address 75 [facility] 7t [place] [address] Care Team Providers Care Senior Inspector Name Role Phone Name, Joni MATAMOROS Primary Care Provider [phone] Thelma Pate PharmD Unavailable [phone] Reason for Visit * Reason Onset Date Comments Med Refill 11/08/2023 Encounter Details Date Type Department Care Team (Late st Contact Info) Description 11/08/2023 Refill [facility] [address] [place], [place] [phone] Name, MD Joni [address] [place], [place] [phone] Essential hypertension Social History Tobacco Use Types [...] Description 08/19/2024 1:00 PM EST Clinical Support [facility] [address] [place] [address] Charlee Rogers RN documented as of this [...] Unspecified essential hypertension documented in this encounter Additional Health Concerns Assessment Noted Time PHQ-9 Depression Total Score: 0 08/23/19 24 2:51 PM EST documented as of this encounter Care Teams Senior Inspector Relationship Specialty Start Date End Date Name, MD Joni [address] [place] [address] PCP - General Family Medicine 07/10/18 Thelma Pate, PharmD [address] [place] [address] Pharmacist Internal Medicine 09/07/22 documented as of this encounter
--- OUTSIDE RECORDS SUMMARY | 2024-08-12 10:52 | XMS_ITS | Encounter Summary ---
Author Organization [employer] Address [address] [facility] 7t [place] [address] Care Team Providers Care Edge Stripper Name Role Phone Name, Joni MATAMOROS Primary Care Provider [phone] Thelma Pate PharmD Unavailable [phone] Reason for Visit * Reason Onset Date Comments Med Refill 01/04/2024 Encounter Details Date Type Department Care Team (Late st Contact Info) Description 01/04/2024 Refill [facility] [address] [place], [place] [phone] Indira Aj FNP [address] [place] [address] Chronic pain syndrome Social History Tobacco Use [...] Description 08/19/2024 1:00 PM EST Clinical Support [facility] [address] [place] [address] Charlee Rogers RN documented as of this encounter Goals Goal Patient Goal Type Associated Problems Recent Progress Patient-Stated? Author Blood Pressure < 140/90 Blood Pressure 124/74( 025 9:36 AM EST) No PuiaThelma, PharmD Record your blood pressure once per day Blood Pressure No PuiaPatriceThelma, PharmD documented as of this encounter Visit Diagnoses Diagnosis Chronic pain syndrome documented in this encounter Additional Health Concerns Assessment Noted Time PHQ-9 Depression Total Score: 0 08/23/19 24 2:51 PM EST documented as of this encounter Care Teams Edge Stripper Relationship Specialty Start Date End Date Name, MD Joni [address] [place] [address] PCP - General Family Medicine 07/10/18 PuiaThelma, PharmD [address] [place] [address] Pharmacist Internal Medicine 09/07/22 documented as of this encounter
--- OUTSIDE RECORDS SUMMARY | 2024-08-12 10:52 | XMS_ITS | Encounter Summary ---
Author Organization [employer] Address [address] [facility] 7t [place] [address] Care Team Providers Care Principal Technologist Name Role Phone Name, Joni MATAMOROS Primary Care Provider Thelma Pate PharmD Unavailable [phone] Reason for Visit * Reason Comments Med Refill Encounter Details Date Type Department Care Team (Late st Contact Info) Description 07/29/2024 Refill [facility] MEDICINE [address] [place], [place] [phone] Name, MD Joni [address] [place], [place] [phone] Migraine without aura, not refractory Social History Tobacco Use Types Packs/Day Years [...] Description 08/19/2024 1:00 PM EST Clinical Support [facility] MEDICINE [address] [place] [address] Charlee Rogers RN documented as of this encounter Goals Goal Patient Goal Type Associated Problems Recent Progress Patient-Stated? Author Blood Pressure < 140/90 Blood Pressure 124/74( 025 9:36 AM EST) No Thelma Pate, PharmD Record your blood pressure once per day Blood Pressure No Thelma Pate, PharmD documented as of this encounter Visit Diagnoses Diagnosis Migraine without aura, not refractory documented in this encounter Additional Health Concerns Assessment Noted Time PHQ-9 Depression Total Score: 0 08/23/19 24 2:51 PM EST documented as of this encounter Care Teams Principal Technologist Relationship Specialty Start Date End Date Name, MD Joni [address] [place] [id number] PCP - General Family Medicine 07/10/18 Thelma Pate, PharmD [address] [place] [address] Pharmacist Internal Medicine 09/07/22 documented as of this encounter
--- OUTSIDE RECORDS SUMMARY | 2024-08-12 10:52 | XMS_ITS | Encounter Summary ---
Author Organization [employer] Address 75 [facility] 7t [place] [address] Care Team Providers Care Pbx Wire Chief Name Role Phone Name, Joni MATAMOROS Primary Care Provider [phone] Thelma Pate PharmD Unavailable [phone] Reason for Visit * Reason Onset Date Comments Med Refill 10/17/2023 Encounter Details Date Type Department Care Team (Late st Contact Info) Description 10/17/2023 Refill [facility] MEDICINE [address] [place], [place] [phone] Name, MD Joni [address] [place] [address] Social History Tobacco Use Types Packs/Day Years [...] Description 08/19/2024 1:00 PM EST Clinical Support [facility] MEDICINE [address] [place] [address] Charlee Rogers RN documented as of this [...] documented as of this encounter Care Teams Pbx Wire Chief Relationship Specialty Start Date End Date Name, MD Joni [address] [place] [phone] PCP - General Family Medicine 07/10/18 Thelma Pate, PharmD [address] [place] [address] Pharmacist Internal Medicine 09/07/22 documented as of this encounter
--- OUTSIDE RECORDS SUMMARY | 2024-08-12 10:52 | XMS_ITS | Encounter Summary ---
Author Organization [employer] Address 75 [facility] 7t [place] [address] Care Team Providers Care L Tacker Name Role Phone Name, Joni MATAMOROS Primary Care Provider [phone] Thelma Pate PharmD Unavailable [phone] Reason for Visit * Reason Onset Date Comments Med Refill 10/17/2023 Encounter Details Date Type Department Care Team (Late st Contact Info) Description 10/17/2023 Refill [facility] MEDICINE 230 [place], [place] [phone] Name, MD Joni [address] [place] [address] Social History Tobacco Use Types Packs/Day Years [...] Description 08/19/2024 1:00 PM EST Clinical Support [facility] MEDICINE [address] [place] [address] Charlee Rogers RN documented as of this [...] documented as of this encounter Care Teams L Tacker Relationship Specialty Start Date End Date Name, MD Joni [address] [place] [phone] PCP - General Family Medicine 07/10/18 Thelma Pate, PharmD [address] [place] [address] Pharmacist Internal Medicine 09/07/22 documented as of this encounter
--- OUTSIDE RECORDS SUMMARY | 2024-08-12 10:52 | XMS_ITS | Encounter Summary ---
Author Organization [employer] Address 75 [facility] 7t [place] [address] Care Team Providers Care Bag Presser Name Role Phone Name, Joni MATAMOROS Primary Care Provider Thelma Ptae PharmD Unavailable [phone] Reason for Visit * Reason Onset Date Comments Med Refill 11/08/2023 Encounter Details Date Type Department Care Team (Late st Contact Info) Description 11/08/2023 Refill [facility] MEDICINE [address] [place], [place] [phone] Name, MD Joni [address] [place], [place] [phone] Social History Tobacco Use Types Packs/Day Years [...] Description 08/19/2024 1:00 PM EST Clinical Support [facility] MEDICINE [address] [place] [address] Charlee Rogers RN documented as of this [...] documented as of this encounter Care Teams Bag Presser Relationship Specialty Start Date End Date Name, MD Joni [address] [place] [phone] PCP - General Family Medicine 07/10/18 Thelma Pate, PharmD [address] [place] [address] Pharmacist Internal Medicine 09/07/22 documented as of this encounter
--- OUTSIDE RECORDS SUMMARY | 2024-08-12 10:52 | XMS_ITS | Encounter Summary ---
Author Organization [employer] Address 75 [facility] 7t [place] [address] Care Team Providers Care Print Production Coordinator Name Role Phone Name, Joni MATAMROOS Primary Care Provider [phone] Thelma Pate PharmD Unavailable [phone] Reason for Visit * Reason Onset Date Comments Med Refill 01/10/2024 Encounter Details Date Type Department Care Team (Late st Contact Info) Description 01/10/2024 Refill [facility] MEDICINE 230 [place], [place] [phone] Name, MD Joni [address] [place], [place] [phone] Rash Social History Tobacco Use Types Packs/Day [...] Description 08/19/2024 1:00 PM EST Clinical Support [facility] MEDICINE [address] [place] [address] Charlee Rogers RN documented as of this [...] documented as of this encounter Care Teams Print Production Coordinator Relationship Specialty Start Date End Date Name, MD Joni [address] [place] [address] PCP - General Family Medicine 07/10/18 Thelma Pate, PharmD [address] [place] [phone] Pharmacist Internal Medicine 09/07/22 documented as of this encounter
--- OUTSIDE RECORDS SUMMARY | 2024-08-12 10:52 | XMS_ITS | Encounter Summary ---
Author Organization [employer] Address 75 [facility] 7t [place] [address] Care Team Providers Care Ivory Carver Name Role Phone Name, Joni MATAMOROS Primary Care Provider [phone] Thelma Pate PharmD Unavailable [phone] Reason for Visit * Reason Onset Date Comments Med Refill 01/12/2024 Encounter Details Date Type Department Care Team (Late st Contact Info) Description 01/12/2024 Refill [facility] MEDICINE [address] [place], [place] [phone] Name, MD Joni [address] [place], [place] [phone] Chronic pain syndrome Social History Tobacco Use [...] Description 08/19/2024 1:00 PM EST Clinical Support [facility] MED[facility]INE [address] [place] [address] Charlee Rogers RN documented as of this [...] documented as of this encounter Care Teams Ivory Carver Relationship Specialty Start Date End Date Name, MD Joni [address] [place] [address] PCP - General Family Medicine 07/10/18 Thelma Pate, PharmD [address] [place] [address] Pharmacist Internal Medicine 09/07/22 documented as of this encounter
--- OUTSIDE RECORDS SUMMARY | 2024-08-12 10:52 | XMS_ITS | Encounter Summary ---
Author Organization [employer] Address 75 [facility] 7t [place] [address] Care Team Providers Care Darklight Inspector Name Role Phone Name, Joni MATAMOROS Primary Care Provider Thelma Pate PharmD Unavailable [phone] Reason for Visit * Reason Onset Date Comments Med Refill 07/30/2024 Encounter Details Date Type Department Care Team (Late st Contact Info) Description 07/30/2024 Refill [facility] MEDICINE [address] [place], [place] [phone] Name, MD Joni [address] [place], [place] [phone] Chronic pain syndrome Social History Tobacco Use [...] EST Clinical Support [facility] MEDICINE [address] [place] [address] Charlee Rogers RN documented as of this [...] documented as of this encounter Care Teams Darklight Inspector Relationship Specialty Start Date End Date Name, MD Joni [address] [place] [phone] PCP - General Family Medicine 07/10/18 Thelma Pate, PharmD [address] [place] [address] Pharmacist Internal Medicine 09/07/22 documented as of this encounter
[2024-08-12 12:08] LABS: Anion Gap 12 (12-20); Blood Urea Nitrogen 17 mg/dL (9-16); Calcium 8.7 mg/dL (8.4-10.2); Carbon Dioxide 25 mmol/L (22-29); Chloride 101 mmol/L (96-108); Estimated Glomerular Filt Rate > 60; Glucose Random 116 mg/dL (60-115); Potassium 3.8 mmol/L (3.3-5.1); Sodium 134 mmol/L (135-145)
[2024-08-13 08:38] LABS: HIV AB/AG Nonreactive (Nonreactive); HIV Num 1 0.06 S/CO (0.00-0.99); ~HepC Num1 0.09 S/CO (0.00-0.79); ~Hepatitis C Antibody Nonreactive (Nonreactive)
== END 2024-08-12 10:10 | disposition home or self-care (01) ==
LOC: HO.HHCL 10:09
PROVIDERS: Visit Provider Internal Medicine Geriatric Medicine
DX: Z11.4 Encounter for screening for human immunodeficiency virus [HIV] (principal); Z11.59 Encounter for screening for other viral diseases; I10 Essential (primary) hypertension
CPT/HCPCS: 36415; 80048; 86803; 87389